=== PATIENT | male | born 1995 | race Hispanic/Latino ===

== ENCOUNTER 2021-11-02 11:51 | Emergency (ER) | payer OTHER ==
[2021-11-02] MEDS ORDERED: BUPIVACAINE 0.5% PF 10 ML VIAL ONE ×2 (12:16→12:19)
--- NOTE | 2021-11-02 13:39 | RAD REPORT ---
EXAM DESCRIPTION: RAD - Hand Right 3 View - 11/02/2021 1:26 pm CLINICAL HISTORY: finger trauma COMPARISON: No comparisons FINDINGS/IMPRESSION: No acute fracture. No malalignment. No significant focal degenerative changes.
--- NOTE | 2021-11-02 14:13 | EDPHYS ---
Physician Documentation [facility] Name: Pepito Oates Age: 26 yrs Sex: Male : 1995 Arrival Date: 11/02/2021 Time: 11:51 Bed 18 Private MD: ED Physician Pierre Tuttle HPI: 11/02 12:10 This 26 yrs old Male presents to ER via Ambulatory with complaints of Finger jmm Injury - laceration. 12:10 The patient or guardian reports injury, pain. Onset: The symptoms/episode jmm began/occurred acutely, just prior to arrival. Modifying factors: The symptoms are alleviated by nothing, the symptoms are aggravated by nothing. Associated signs and symptoms: Pertinent negatives: fever. Patient accidently cut his right 4th finger with a hedger. Denies other injury. Unsure on tetanus immunization. . Historical: - Allergies: 12:02 No Known Allergies; mayer - Home Meds: 12:02 None [Active]; mayer - PMHx: 12:02 None; mayer - PSHx: 12:02 None; mayer - Immunization history:: Adult Immunizations not up to date. - Social history:: Smoking status: Patient denies any tobacco usage or history of. ROS: 12:10 Constitutional: Negative for fever, chills, and weight loss, Cardiovascular: Negative jmm for chest pain, palpitations, and edema, Respiratory: Negative for shortness of breath, cough, wheezing, and pleuritic chest pain. 12:10 MS/extremity: Positive for injury or acute deformity. 12:10 All other systems are negative. Exam: 12:10 Constitutional: This is a well developed, well nourished patient who is awake, alert, jmm and in no acute distress. Head/Face: atraumatic. Eyes: EOMI, no conjunctival erythema appreciated ENT: Moist Mucus Membranes Neck: Trachea midline, Supple Chest/axilla: Normal chest wall appearance and motion. Cardiovascular: Regular rate and rhythm. No edema appreciated Respiratory: Normal respirations, no respiratory distress appreciated Abdomen/GI: Non distended, soft Back: Normal ROM 12:10 Skin: 3 cm laceration noted to the right 4th finger. 12:10 Neuro: Orientation: is normal, Mentation: is normal, Memory: is normal. 12:10 Psych: Behavior/mood is pleasant, cooperative. Vital Signs: 12:07 BP 124 / 76; Pulse 60; Resp 18; Temp 97.5; Pulse Ox 97% on R/A; Weight 81.65 kg; Height ag7 5 ft. 6 in. (167.64 cm); Pain 8/10; 12:19 BP 127 / 75; Pulse 62; Resp 18; Pulse Ox 99% on R/A; mayer 13:09 BP 111 / 76; Pulse 75; Resp 18; Pulse Ox 99% on R/A; mayer 12:07 Body Mass Index 29.05 (81.65 kg, 167.64 cm) ag7 Laceration: 14:06 Wound Repair of 3cm ( 1.2in ) subcutaneous laceration to dorsal aspect of distal jmm phalanx of right ring finger and right ring fingernail. Distal neuro/vascular/tendon intact. Anesthesia: Local anesthetic administered with 3 mls of 0.5% marcaine. Wound prep: Simple cleansing with betadine by me. Skin closed with 6 5-0 Prolene using simple sutures and sterile technique. Patient tolerated well. MDM: 12:18 Patient medically screened. [facility] 14:06 Data reviewed: vital signs, nurses notes. [facility] 14:06 Counseling: I had a detailed discussion with the patient and/or guardian regarding: the [facility] historical points, exam findings, and any diagnostic results supporting the discharge/admit diagnosis, radiology results, the need for outpatient follow up, to return to the emergency department if symptoms worsen or persist or if there are any questions or concerns that arise at home. ED course: Patient given wound infection return precautions. . 11/02 12:18 Order name: Hand Right 3 View XRAY; Complete Time: 13:42 [facility] Administered Medications: 12:17 Drug: Marcaine (bupivacaine) (0.5 %) 20 ml Volume: 10 ml; Route: Infiltration; mayer Disposition: 15:35 Co-signature as Attending Physician, Pierre Tuttle MD I agree with the assessment and rn plan of care. Attestation: The patient's history, exam findings, diagnostics, and a summary of any interventions or procedures was reviewed in detail with Shankar FELICIANO. Disposition Summary: 11/02/21 14:13 Discharge Ordered Location: Home [facility] Condition: Stable [facility] Diagnosis - Finger Laceration [facility] Followup: [facility] - With: Private Physician - When: 10 - 14 days - Reason: Recheck today's complaints, Continuance of care, Re-evaluation by your physician Discharge Instructions: - Discharge Summary Sheet kala - Laceration Care, Adult kala Forms: - Medication Reconciliation Form sherif - Thank You Letter kala - Antibiotic Education kala - Prescription Opioid Use sherif Prescriptions: - Augmentin 875-125 mg Oral Tablet - take 1 tablet by ORAL route every 12 hours for 10 days; 20 tablet; Refills: 0, jmm Product Selection Permitted Signatures: Dispatcher [employer] Shankar Sandy PA PA jmm Nieto, Roman, MD MD rn Maria Teresa-ManuelrQuin RN RN mayer
--- NOTE | 2021-11-02 14:13 | ER ---
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 Coronavirus screen: Vaccine status: Patient reports receiving the 2nd dose of the covid vaccine. Ebola Screen: No symptoms or risks identified at this time. Initial Sepsis Screen: Does the patient meet any 2 criteria? No. Patient's initial sepsis screen is negative. Does the patient have a suspected source of infection? No. Patient's initial sepsis screen is negative. Risk Assessment: Do you want to hurt yourself or someone else? Patient reports no desire to harm self or others. Onset of symptoms was November 02, 2021. 12:07 Method Of Arrival: Ambulatory [facility] 12:07 Acuity: KATY 3 ag7 Historical: - Allergies: 12:02 No Known Allergies; mayer - Home Meds: 12:02 None [Active]; mayer - PMHx: 12:02 None; mayer - PSHx: 12:02 None; mayer - Immunization history:: Adult Immunizations not up to date. - Social history:: Smoking status: Patient denies any tobacco usage or history of. Screenin:02 Abuse screen: Denies threats or abuse. Denies injuries from another. Nutritional mayer screening: No deficits noted. Tuberculosis screening: No symptoms or risk factors identified. Fall Risk None identified. Assessment: 12:01 General: Appears in no apparent distress. Behavior is calm, cooperative. Pain: mayer Complains of pain in palmar aspect of distal phalanx of right ring finger. Musculoskeletal: No deficits noted. Injury Description: Laceration sustained to palmar aspect of distal phalanx of right ring finger is 0.5 to 2.5 cm long, bleeding moderately, moderate bleeding noted at this time. Vital Signs: 12:07 BP 124 / 76; Pulse 60; Resp 18; Temp 97.5; Pulse Ox 97% on R/A; Weight 81.65 kg; Height ag7 5 ft. 6 in. (167.64 cm); Pain 8/10; 12:19 BP 127 / 75; Pulse 62; Resp 18; Pulse Ox 99% on R/A; mayer 13:09 BP 111 / 76; Pulse 75; Resp 18; Pulse Ox 99% on R/A; mayer 12:07 Body Mass Index 29.05 (81.65 kg, 167.64 cm) ag7 ED Course: 11:51 Patient arrived in ED. as 11:57 Shankar Peace PA is PHCP. [facility] 11:57 Pierre Tuttle MD is Attending Physician. [facility] 12:02 Patient has correct armband on for positive identification. Bed in low position. mayer 12:02 No provider procedures requiring assistance completed. mayer 12:10 Triage completed. ag7 12:11 Arm band placed on left wrist. ag7 13:26 Hand Right 3 View XRAY In Process Unspecified. EDMS 14:22 Patient did not have IV access during this emergency room visit. mayer Administered Medications: 12:17 Drug: Marcaine (bupivacaine) (0.5 %) 20 ml Volume: 10 ml; Route: Infiltration; mayer Outcome: 14:13 Discharge ordered by . [facility] 14:22 Discharged to home with friend. mayer 14:22 Condition: good 14:22 Discharge instructions given to patient, Prescriptions given X 1. 14:22 Patient left the ED. mayer Signatures: Dispatcher [employer] EDMS Shankar Peace PA PA jmm Martinez, Amelia as Au-StagerQuin RN RN Sunita Ga RN RN 7
[2021-11-02 14:39] VITALS: TEMP 97.5
[2021-11-02 14:40] VITALS: O2SAT 99
[2021-11-02 14:42] VITALS: BP 111/76
== END 2021-11-02 14:22 | disposition home or self-care (01) ==
LOC: ER 11:51
PROC: 0JQJ0ZZ Repair Right Hand Subcutaneous Tissue and Fascia, Open Approach (ICD-10-PCS; principal; 2021-11-02)
DX: S61.214A Laceration without foreign body of right ring finger without damage to nail, initial encounter (principal); W29.3XXA Contact with powered garden and outdoor hand tools and machinery, initial encounter
CPT/HCPCS: 99283